=== PATIENT | male | born 1985 | race Caucasian/White ===

== ENCOUNTER 2020-05-03 21:25 | Emergency (ER) | payer SELFPAY ==
[~2020-05-03] VITALS: Ht 182.9 cm; Wt 81.8 kg
[2020-05-03 21:30] VITALS: Ht 182.9 cm; Wt 81.8 kg
[2020-05-03] MEDS ORDERED: BENTYL 20 MG TA20 MG PO (21:33)
[2020-05-03] MEDS ORDERED: PHENERGAN25 M1 PO (21:33)
[2020-05-03] MEDS ORDERED: BUPROPION HCL100 MG PO (21:34)
[2020-05-03 22:04] LABS: HEMATOCRIT 43.7 % (42.0-54.0); HEMOGLOBIN 15.5 g/dL (13.5-17.5); MCH 30.8 pg (26.0-34.0); MCHC 35.5 g/dL (31.0-37.0); MCV 86.9 fL (80.0-100.0); MEAN PLATELET VOLUME 9.5 fL (7.4-10.4); PLATELET COUNT 293 10x3/uL (130-400); RBC 5.03 10x6/uL (4.20-6.10); WBC 22.8 10x3/uL (4.8-10.8)
[2020-05-03 22:18] LABS: ANION GAP 16.2 mmol/L (8-16); CALCIUM 9.7 mg/dL (8.5-10.1); CARBON DIOXIDE 25.4 mmol/L (21.0-32.0); CREATININE - SERUM 1.5 mg/dL (0.6-1.3); POTASSIUM - SERUM 3.6 mmol/L (3.5-5.1)
[2020-05-03 22:21] LABS: ALBUMIN 4.7 g/dL (3.4-5.0); BILIRUBIN - TOTAL 0.56 mg/dL (0.2-1.3); PROTEIN - SERUM 7.7 g/dL (6.4-8.2)
[2020-05-03 22:35] LABS: EOSINOPHILS 1 % (0-7); LYMPHOCYTES 11 % (15-50); MONOCYTES 3 % (2-11); NEUTROPHILS 85 % (40-80); PLATELET ESTIMATE NORMAL
[2020-05-04] MEDS ORDERED: PHENERGAN25 M1 RC (00:01)
[2020-05-04] MEDS ORDERED: PHENERGAN25 M1 PO ×2 (00:01→00:04)
[2020-05-04] MEDS ORDERED: MORPHINE IMMEDI15 MG PO ×2 (00:02→00:04)
[2020-05-04 01:37] VITALS: BP 118/77
== END 2020-05-04 01:37 | disposition home or self-care (01) ==
LOC: D.ER 21:25
PROVIDERS: Emergency Medicine
DX: R11.2 Nausea with vomiting, unspecified (principal); R10.9 Unspecified abdominal pain